=== PATIENT | male | born 2005 | race African-American/Black ===

== ENCOUNTER 2024-05-14 11:13 | Emergency (ER) | payer OTHER, MEDICARE, SELFPAY ==
[2024-05-14 11:18] VITALS: BP 121/73
--- NOTE | 2024-05-14 11:31 | ED.GENMED ---
History of Present Illness
<Lou Wills PA-C - Last Filed: 05/14/24 15:44>
General
Chief Complaint: Seizure
Source: patient
Time Seen by Provider: 05/14/24 11:17
History of Present Illness
History of Present Illness:
19yoM with a history of anxiety and depression presenting via EMS for evaluation after a seizure-like episode. He currently resides at [facility] for psychiatric residential treatment. Staff from the facility reports that he was irritable and angry this
morning. He went to lay down on the couch after a group session. Staff states his eyes started to look distant. He then went into a position and started having generalized convulsions. His eyes were roving and he had frothy oral secretions.
The episode lasted about 1 minute before resolving. He was hard to wake up for about 10-15 minutes after the episode. He was obtunded on EMS arrival and initially became agitated with sternal rub. Patient is awake on arrival although fatigued. He
states he feels 'bad.' He does not recall the episode. No prior history of seizures. His only medications are trazodone, Zoloft, and an iron supplement.
Phy Exam
<Lou Wills PA-C - Last Filed: 05/14/24 15:44>
Physical Exam
Physical Exam:
Patient fatigued but interactive during exam. He is A&Ox3 and following commands.
General Physical Exam
General Presentation: well appearing and no apparent distress
General age: appears stated age
General Skin: warm and dry
General Habitus: normal
General Mental: alert
ENT Exam
ENT Exam: neck supple
Additional ENT: No meningismus
Cardiovascular Exam
Cardiovascular Exam: regular rate/rhythm and no edema
Pulmonary Exam
Pulmonary Exam: lungs clear, no respiratory distress and no crackles
Neurological Exam
Neurological Exam: alert, oriented x3 and no motor deficits
Evelin Coma Scale
Eye Opening: Spontaneous
Verbal Response: Oriented
Motor Response: Obeys Commands
GCS Total Score: 15
Skin Exam
Skin Exam: normal color and warm/dry
Psychiatric Exam
Psychiatric Exam: normal mood/affect
Course
<Lou Wills PA-C - Last Filed: 05/14/24 15:44>
Orders/Labs/Results
Orders:
Orders
05/14/24 11:18
Electrocardiogram (*1) Urgent
Reason for Study: Tachycardia
EKG- Treatment ONCE
05/14/24 11:23
CMP [Comprehensive Metabolic Panel] Urgent
Complete Blood Count/With Diff Urgent
05/14/24 11:31
Cardiac Monitoring- Treatment ONCE
0.9% Sodium Chloride 1000 ml [Nss] 1,000 ml IV BOLUS
05/14/24 11:32
CT Head W/o Iv Contrast Urgent
Comment:
Reason For Exam: New onset seizure
Abnormal Lab Results
05/14/24
11:23
WBC 2.9 L 10^3/uL
(4.8-10.8)
MCV 78.1 L fL
(80.0-94.0)
MCH 25.8 L pg
(27.0-31.0)
Absolute Neuts (auto) 1.1 L 10^3/uL
(1.4-6.5)
Neutrophils % 39.3 L %
(42.2-75.2)
05/14/24 11:23
05/14/24 11:23
Vital Signs
Initial and Last Documented VS:
Initial Vital Signs
Temp Pulse Resp BP Pulse Ox
97.9 F 66 18 121/73 98
05/14/24 11:18 05/14/24 11:18 05/14/24 11:18 05/14/24 11:18 05/14/24 11:18
Last Documented Vital Signs
Temp Pulse Resp BP Pulse Ox
97.9 F 78 16 124/72 99
05/14/24 11:18 05/14/24 13:43 05/14/24 13:43 05/14/24 13:36 05/14/24 13:43
<Hiral Royal MD - Last Filed: 05/14/24 13:32>
Orders/Labs/Results
Orders:
Orders
05/14/24 11:18
Electrocardiogram (*1) Urgent
Reason for Study: Tachycardia
EKG- Treatment ONCE
05/14/24 11:23
CMP [Comprehensive Metabolic Panel] Urgent
Complete Blood Count/With Diff Urgent
05/14/24 11:31
Cardiac Monitoring- Treatment ONCE
0.9% Sodium Chloride 1000 ml [Nss] 1,000 ml IV BOLUS
05/14/24 11:32
CT Head W/o Iv Contrast Urgent
Comment:
Reason For Exam: New onset seizure
Abnormal Lab Results
05/14/24
11:23
WBC 2.9 L 10^3/uL
(4.8-10.8)
MCV 78.1 L fL
(80.0-94.0)
MCH 25.8 L pg
(27.0-31.0)
Absolute Neuts (auto) 1.1 L 10^3/uL
(1.4-6.5)
Neutrophils % 39.3 L %
(42.2-75.2)
05/14/24 11:23
05/14/24 11:23
Vital Signs
Initial and Last Documented VS:
Initial Vital Signs
Temp Pulse Resp BP Pulse Ox
97.9 F 66 18 121/73 98
05/14/24 11:18 05/14/24 11:18 05/14/24 11:18 05/14/24 11:18 05/14/24 11:18
Last Documented Vital Signs
Temp Pulse Resp BP Pulse Ox
97.9 F 78 16 124/72 99
05/14/24 11:18 05/14/24 13:43 05/14/24 13:43 05/14/24 13:36 05/14/24 13:43
<Lou Wills PA-C - Last Filed: 05/14/24 15:44>
MDM/Problems Addressed
Differential Diagnosis Includes:
19yoM here after a seizure like episode. Witnessed by the staff at his [facility] residential facility. Described as unresponsiveness and generalized shaking x 1 minute followed by a postictal period of 15 minutes. Obtunded on EMS arrival but is awake
and alert on arrival. No prior hx of seizures. He is A&Ox3 and following commands. No meningismus or focal deficits noted. He is afebrile and hemodynamically stable. Differential diagnosis includes but is not limited to: seizure, pseudoseizure,
syncope
Initial ED plan: Check CBC, CMP, EKG, and CT head. IV fluid bolus.
<Lou Wills PA-C - Last Filed: 05/14/24 15:44>
*EKG
Interpreted by ED Provider?: Yes
EKG Intrepretation Date: 05/14/24
EKG Intrepretation Time: 11:39
Heart Rate: 68
Rate: normal
Rhythm: sinus
[place]: normal axis
Interval: normal interval
Ischemia: other (Benign early repolarization)
*Critical Care Note
Total Time (30-74mins, 75-104mins- exclusive of procedures): Not Applicable
<Lou Wills PA-C - Last Filed: 05/14/24 15:44>
Update Note
Update Note:
Labs overall unremarkable including normal electrolytes and glucose. EKG shows NSR without ectopy or ischemic changes. CT head is negative for acute findings. Patient is back to baseline on reassessment and neuro exam remains non-focal. No
indication for admission at this time. 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 He was advised to f/u closely with neurology as an outpatient. ED return precautions discussed including any recurrent episodes. He was discharged with a staff member
from his facility in stable condition.
ED Attending Note
<Lou Wills PA-C - Last Filed: 05/14/24 15:44>
-
Portions of this chart may have been created with voice recognition software.� Occasional wrong word or��sound alike� substitutions may have occurred due to the inherent limitations of voice recognition software.
<Hiral Royal MD - Last Filed: 05/14/24 13:32>
ED Attending Note
Patient seen and examined by attending physician: Yes
I performed the substantive portion of visit, reviewed & personally made and approve the management plan that is documented in note by myself or OLIVA.: Yes
ED Attending Note:
1:32 pm The patient is fully awake, alert and oriented x 3. He is a normal neurological exam. He is back to his baseline. Lab work shows no abnormalities. CT shows no abnormalities. He has no recent history of fever or rash. He appears
nontoxic and there is no sign of meningitis. Staff told the patient must be evaluated by neurologist soon as possible. Additionally, staff told he must return back to the hospital for any further seizures back to the hospital
Discharge Plan
Departure
Patient Disposition: Home (Routine Discharge)
Patient with high blood pressure during this ER visit?: No
Discharge Problem:
New onset seizure
Instructions: Seizures, Adult (DC)
Referrals:
Mj Navarro MD [Active] -
UNKNOWN - PT NOT,INTERVIEWE [Family Provider] -
Activity Restrictions/Additional Instructions:
Please call today to schedule a follow-up with neurology. Return to the ER immediately any with recurrent episodes or new symptoms.
Interventions
Interventions:
*Risk Screen - Suicide Last Done: 05/14/24 11:20
*General Assessment Last Done: 05/14/24 11:20
*Neglect/Abuse Screening Last Done: 05/14/24 11:20
ED- Fall Risk Assessment Last Done: 05/14/24 13:46
*ED COVID-19 Vaccine History Last Done: 05/14/24 11:20
*Nursing Disposition Last Done: 05/14/24 13:46
ED- Cardiac Assessment Last Done: 05/14/24 11:21
ED- Neurological Assessment Last Done: 05/14/24 11:21
ED- Pulmonary Assessment Last Done: 05/14/24 11:21
Discharge Date and Time
Discharge Date/Time: 05/14/24 13:50
Print Language: LAO
[2024-05-14 11:36] LABS: % Eosinophils 5.6 % (0-6); % Immature Granulocytes 0.3 % (0-0.5); % Lymphocytes 45.1 % (20.5-51.1); % Monocytes 8.7 % (1.7-9.3); % Neutrophils 39.3 % (42.2-75.2); Absolute Eosinophils 0.2 10^3/uL (0-0.7); Absolute Lymphocytes 1.3 10^3/uL (1.2-3.4); Absolute Monocytes 0.3 10^3/uL (0.1-0.6); Absolute Neutrophils 1.1 10^3/uL (1.4-6.5); Hematocrit 41.4 % (39.0-52.0); Hemoglobin 13.7 g/dL (13.0-18.0); Mean Corp Hgb Conc. 33.1 g/dL (33.0-37.0); Mean Corpuscular Hgb 25.8 pg (27.0-31.0); Mean Corpuscular Volume 78.1 fL (80.0-94.0); Mean Platelet Volume 10.1 fL (7.4-10.4); Nucleated Red Blood Cells % 0 % (-); Platelet Count 204 10^3/uL (130-400); Red Cell Dist. Width 13.7 % (11.5-14.5); White Blood Cell Count 2.9 10^3/uL (4.8-10.8)
[2024-05-14 11:57] VITALS: BP 122/69
[2024-05-14] MEDS: NSS 1000 IV (11:57)
[2024-05-14 12:00] VITALS: BP 123/72
[2024-05-14 12:05] LABS: ALT (SGPT) 18 U/L (0-50); AST (SGOT) 34 U/L (17-59); Albumin 4.4 g/dl (3.5-5.0); Alkaline Phosphatase 64 U/L (38-126); Blood Urea Nitrogen 14 mg/dl (9-20); Calcium 9.6 mg/dl (8.4-10.2); Carbon Dioxide 24 mmol/L (22-30); Chloride 107 mmol/L (98-107); Glucose 90 mg/dl (70-99); Potassium 4.4 mmol/L (3.5-5.1); Sodium 138 mmol/L (135-145); Total Bilirubin 0.3 mg/dl (0.2-1.3); Total Protein 7.3 g/dl (6.3-8.2); eGFR > 60.00
[2024-05-14 13:36] VITALS: BP 124/72
== END 2024-05-14 13:50 | disposition home or self-care (01) ==
LOC: EMR 11:13
PROVIDERS: EMERGENCY PHYSICIAN Emergency Medicine
DX: R56.9 Unspecified convulsions (principal); R45.4 Irritability and anger; F32.A Depression, unspecified; F41.9 Anxiety disorder, unspecified
CPT/HCPCS: 99284; 96360; 70450; 80053; 85025; 93005